=== PATIENT | female | born 1990 | race Caucasian/White ===

== ENCOUNTER 2022-04-03 01:57 | Emergency (ER) | payer MEDICAID, SELFPAY ==
[2022-04-03 02:03] VITALS: BP 107/83; PULSE 125; RESP 16; TEMP 37.1; O2SAT 99; BMI 22.4
--- NOTE | 2022-04-03 02:03 | ED_ITS ---
HPI - General Adult General Time Seen by Provider: 02:04 Date Seen: 04/03/22 Chief complaint: Headache/Migraine Stated complaint: Migraine, back pain,chills Time Seen by Provider: 04/03/22 02:00 Source: patient and other (friend) Mode of arrival: ambulatory Limitations: no limitations History of Present Illness HPI narrative: 37-year-old who presents today with numerous complaints. The primary complaint today is headache. The patient has a history of chronic recurrent headaches and has had emergency department visits in the past. Normally takes Tylenol, melox icam, and Imitrex for this but has not received relief. 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 The headache is generalized, goes into the neck and upper back. No photophobia or phonophobia. Over the past month, progressive difficulty swallowing which is an old problem but seems to be getting worse, also reports chills, weight loss, paresthesias. There is an appointment in the spine clinic in a couple of weeks for concerns but came in today because of ongoing headache. Hematuria for the past year, denies urinary symptoms today. Review of most recent neurology visit on January 24 demonstrates tachycardia with a rate of about 120, cervicalgia, back pain with sciatica, paresthesias, migraines, and gait disturbance. Recent MRI of the cervical spine did not demonstrate any abnormalities other than some degenerative changes, MRI of the brain from December was normal. Also note the patient was seen by Neurosurgery on February 18, although I do not have access to MRIs, MRI of the thoracic spine and lumbar spine reported to be negative, although there is some evidence for craniocervical instability reported. Related Data Home Medications Medication Instructions Recorded Confirmed Tylenol 04/03/22 Zofran 04/03/22 meloxicam 04/03/22 sumatriptan 04/03/22 Allergies Allergy/AdvReac Type Severity Reaction Status Date / Time Sulfa (Sulfonamide Allergy itching Verified 04/03/22 03:17 Antibiotics) Review of Systems Status of ROS: Reports: 10 or more systems reviewed and unremarkable except as noted in History and below [facility] Medical History (Updated 04/03/22 @ 03:10 by Bill Bryant RN) Migraine Surgical History (Updated 04/03/22 @ 03:11 by Bill Bryant RN) History of hysterectomy History of thyroidectomy Hx of tonsillectomy Social History Smoking Status: Former smoker Do you use any of these nicotine containing products: Vaping Products Second hand tobacco smoke exposure: No How often do you have a drink containing alcohol: never AUDIT-C Alcohol total score: 0 Non-prescribed substance use: marijuana (any form) service: No Exam Narrative: Exam Narrative: General: Well-developed and well-nourished, no acute distress Head: Atraumatic and normocephalic Eyes: Pupils are equal reactive, extraocular motions intact, conjunctiva clear ENT: External nose and ears are normal, posterior pharynx without erythema or exudate Neck: No midline cervical tenderness, full spontaneous range of motion the ne ck, trachea midline, no adenopathy Heart: Regular rate and rhythm no murmurs or thrills Lungs: Clear to auscultation bilaterally without wheezes or crackles Abdomen: Soft, nontender, nondistended with active bowel sounds Musculoskeletal: No tenderness, deformity, or edema Neurologic: Awake, alert, and oriented x3, no gross focal neurologic deficits, cranial nerves intact as tested Psych: Mood and affect are appropriate Skin: No rashes Const: Vital Signs, click to edit/add: Vital Signs - 24 hr 04/03/22 02:03 04/03/22 03:13 Temperature 98.7 F Pulse Rate [Left P ulse Oximeter] 125 H 110 H Respiratory Rate 16 16 Blood Pressure [Ri ght Upper Arm] 107/83 107/83 Pulse Oximetry 99 96 Oxygen Delivery Me thod Room Air Room Air Course Course Hospital Course: Patient seen and examined, prior records reviewed. Differential diagnosis includes but not limited to chronic pain, vertebral dissection, migraine, connective tissue disorder, electrolyte disturbance. Patient with numerous complaints today, review of chart shows that most of these are fairly chronic including chronic pain, paresthesias, balance problems, coordination difficulty. On exam here, no gross focal neurologic deficits noted. Tachycardia on initial arrival which appears is not unusual for the patient based on prior records reviewed. Concern for increased swallowing difficulty in setting of connective tissue disorder, possible vetebral artery dissection. Labs and CT scan ordered along with Toradol and Ativan. If labs and CT are reassuring, patient be discharged with continued outpatient follow-up Reevaluation(s) Reevaluation #1: Labs are reassuring, CT and CTA of IV. Repeat exam negative, patient can be discharged with continued outpatient follow-up. Time: 04:09 Reevaluation #2: Radiology interpretation of CT scan negative. Patient is stable for discharge. Today patient feels better, discussed Decadron to suppress headache. Time: 04:17 Vital Signs Vital signs: Initial Vital Signs Temperature 98.7 F 04/03/22 02:03 Temperature Source Oral 04/03/22 02:03 Pulse Rate 125 H 04/03/22 02:03 Respiratory Rate 16 04/03/22 02:03 Blood Pressure 107/83 04/03/22 02:03 Blood Pressure Mean 91 04/03/22 02:03 Blood Pressure Position Supine 04/03/22 02:03 Pulse Oximetry 99 04/03/22 02:03 Oxygen Delivery Method 04/03/22 02:03 Vital Signs Temperature 98.7 F 04/03/22 02:03 Pulse Rate 125 H 04/03/22 02:03 Respiratory Rate 16 04/03/22 02:03 Blood Pressure 107/83 04/03/22 02:03 Pulse Oximetry 99 04/03/22 02:03 Oxygen Delivery Method 04/03/22 02:03 Temperature 98.7 F 04/03/22 02:03 Pulse Rate 110 H 04/03/22 03:13 Respiratory Rate 16 04/03/22 03:13 Blood Pressure 107/83 04/03/22 03:13 Pulse Oximetry 96 04/03/22 03:13 Oxygen Delivery Method 04/03/22 03:13 Medical Decision Making Medical Records Medical records reviewed: Yes I reviewed the patient's medical records Lab Data Lab results reviewed: Yes I reviewed the patient's lab results Labs: Lab Results 04/03/22 04/03/22 Range/Units 02:00 02:00 WBC 7.84 (4.50-11.00) K/uL RBC 4.47 (4.00-5.20) m/uL Hgb 14.1 (12.0-16.0) gm/dL Hct 40.4 (33.0-51.0) % MCV 90 (80-100) fL MCH 32 (26-34) pg MCHC 35 (32-36) gm/dL RDW Coeff of Louie 12.3 (11.5-15.5) % Plt Count 335 (140-440) K/uL Neut % (Auto) 45.1 (42.0-72.0) % Lymph % (Auto) 43.4 (20-44) % [place] % (Auto) 6.5 (0.0-11.0) % Eos % (Auto) 4.6 (0.0-7.0) % Baso % (Auto) 0.4 (0.0-3.0) % Neut # (Auto) 3.54 (1.7-7.0) K/uL Lymph # (Auto) 3.40 H (0.90-2.90) K/uL [place] # (Auto) 0.50 (0.00-0.90) K/UL Eos # (Auto) 0.36 (0.00-0.50) K/uL Baso # (Auto) 0.03 (0.00-0.30) K/uL Abs Immat Gran (auto) 0.00 (0.00-0.30) K/uL Sodium 141 (135-149) mmol/L Potassium 3.2 L (3.6-5.1) mmol/L Chloride 105 (96-114) mmol/L Carbon Dioxide 25 (20-32) mmol/L BUN 18 (5-24) mg/dL Creatinine 0.5 (0.5-1.5) mg/dL Estimated Creat Clear 154.02 Estimated GFR 129 ml/min Glucose 115 (60-115) mg/dL Calcium 9.3 (8.4-10.6) mg/dL Imaging Data CTA head and neck: Attestation: I have reviewed the pertinent imaging results. My impression: no acute findings Radiologist's impression: no acute findings Discharge Plan Discharge Clinical Impression: Tali-Danlos syndrome, Headache, Chronic pain syndrome Patient Disposition: Home, Self-Care Condition: Stable Instructions: Chronic Pain (ED), Acute Headache (DC) Additional Instructions: Continue your current medications and follow-up with your primary care doctor. Activity Level: No Restrictions Discharge Diet: Regular Prescriptions: No Action meloxicam Zofran Tylenol sumatriptan Stand Alone Forms: [employer] Info Instructions
--- NOTE | 2022-04-03 02:25 | CRLHL7_ITS ---
For Patients: As a result of the Century Cures Act, medical imaging exams and procedure reports are released immediately into your electronic medical record. You may view this report before your referring provider. If you have questions, please contact your health care provider. Indication: Headache. Neck pain. Swallowing difficulty. Technique: Performed without IV contrast. Comparison: None available. Findings: No mass lesion or ventricular obstruction. No hemorrhage is identified. No brain edema or ischemia is localized on this exam. No encephalomalacia. The calvarium and skull base are unremarkable, with normal aeration of the visualized petrous temporal bones and paranasal sinuses on both sides. Impression: Negative CT head. Please note that all CT scans at this facility use dose modulation, iterative reconstruction, and/or weight-based dosing when appropriate to reduce radiation dose to as low as reasonably achievable. Dictated by Caden Morales MD @ 04/03/2022 9:36:21 AM (Electronically Signed)
--- NOTE | 2022-04-03 02:33 | CT_ITS ---
Final Report Patient: VIDA GR Facility:?[facility] Patient ID:?[id number] Site Patient ID:?[id number]. Site :?[id number] Study:?CT Neck Angio Angio -04/03/2022 3:19:41 AM Ordering Physician:Shahbaz Tamez Final Report: DATE: 04/03/2022 CLINICAL HISTORY: Patient with neck pain and headache. TECHNIQUE: Standard helical CT image acquisition of the neck up to the skull base after bolus intravenous contrast enhancement. Multiplanar reconstructed images performed on a separate workstation. COMPARISON: CT same day. FINDINGS: The origins of the great vessels from the aortic arch are patent. The origin of the right vertebral artery is patent. The origin of the left vertebral artery is patent. The common carotid arteries are patent. There is no stenosis at the origin of the right internal carotid artery. There is no stenosis at the origin of the left internal carotid artery. The rest of the cervical segments of the internal carotid arteries are patent up to the skull base. The vertebral arteries are codominant. The cervical segments of the vertebral arteries are patent up to the skull base. The visualized lung apices are unremarkable. The thyroid gland is unremarkable. The soft tissues of the neck are unremarkable. There are degenerative changes in the cervical spine. IMPRESSION: Normal CT angiogram of the neck. Please note that all CT scans at this facility use dose modulation, iterative reconstruction, and/or weight-based dosing when appropriate to reduce radiation dose to as low as reasonably achievable. Dictated by Suresh Hardy MD @ 04/03/2022 11:49:51 AM (Electronic Signature)
--- NOTE | 2022-04-03 02:33 | CT_ITS ---
Final Report Patient: VIDA GR Facility:?[facility] Patient ID:?[id number] Site Patient ID:?[id number]. Site :?1990 Study:?CT Head Angio -04/03/2022 3:18:26 AM Ordering Physician:Shahbaz Tamez Final Report: DATE: 04/03/2022 CLINICAL HISTORY: Patient with headache. TECHNIQUE: Standard helical CT image acquisition through the intracranial circulation following intravenous administration of contrast material with bolus tracking. Multiplanar reconstructed images were performed and interpreted. COMPARISON: CT same day. FINDINGS: There is no cerebral aneurysm or large vessel occlusion. The right internal carotid artery is normal. The right middle cerebral artery and its branches are normal. The right anterior cerebral artery and its branches are normal. The left internal carotid artery is normal. The left middle cerebral artery and its branches are normal. The left anterior cerebral artery and its branches are normal. The anterior communicating artery is well visualized and appears normal. The right vertebral artery and PICA are normal. The left vertebral artery and PICA are normal. The vertebral arteries are codominant. The basilar artery is patent and appears normal. The right posterior cerebral artery is normal. The left posterior cerebral artery is normal. The visualized venous structures are patent. IMPRESSION: Normal CT angiogram of the head without intracranial aneurysm or other neurovascular abnormality. Please note that all CT scans at this facility use dose modulation, iterative reconstruction, and/or weight-based dosing when appropriate to reduce radiation dose to as low as reasonably achievable. Dictated by Suresh Hardy MD @ 04/03/2022 11:51:28 AM (Electronic Signature)
[2022-04-03] MEDS: LORazepam 2 MG/ML inj 0.5 MG IVP (02:43)
[2022-04-03] MEDS: KETOROLAC 15 MG/ML inj IVP (02:44)
[2022-04-03 02:49] LABS: Basophils Absolute Auto 0.03 K/uL (0.00-0.30); Basophils Percent Auto 0.4 % (0.0-3.0); Eosinophils Absolute Auto 0.36 K/uL (0.00-0.50); Eosinophils Percent Auto 4.6 % (0.0-7.0); Hematocrit 40.4 % (33.0-51.0); Hemoglobin* 14.1 gm/dL (12.0-16.0); Lymphocytes Percent Auto 43.4 % (20-44); Mean Corpuscular HGB Conc 35 gm/dL (32-36); Mean Corpuscular Hemoglobin 32 pg (26-34); Mean Corpuscular Volume 90 fL (80-100); Monocytes Percent Auto 6.5 % (0.0-11.0); Neutrophils Absolute Auto 3.54 K/uL (1.7-7.0); Neutrophils Percent Auto 45.1 % (42.0-72.0); Platelet Count* 335 K/uL (140-440); RDW Coefficient of Variation % 12.3 % (11.5-15.5); Red Blood Count 4.47 m/uL (4.00-5.20); White Blood Count* 7.84 K/uL (4.50-11.00)
[2022-04-03 02:51] LABS: Slide Review Reflex No
[2022-04-03 03:01] LABS: Chloride* 105 mmol/L (96-114); Potassium* 3.2 mmol/L (3.6-5.1); Sodium* 141 mmol/L (135-149)
[2022-04-03 03:03] LABS: Creatinine* 0.5 mg/dL (0.5-1.5); Est. Creatinine Clearance* 154.02; Estimated Glomerular Filt Rate 129 ml/min
[2022-04-03 03:04] LABS: Blood Urea Nitrogen* 18 mg/dL (5-24); Calcium* 9.3 mg/dL (8.4-10.6); Carbon Dioxide* 25 mmol/L (20-32); Glucose* 115 mg/dL (60-115)
[2022-04-03 03:13] VITALS: BP 107/83; PULSE 110; RESP 16; O2SAT 96
--- NOTE | 2022-04-03 03:43 | ED.NURSE ---
pt is sleeping
[2022-04-03] MEDS: dexAMETHasone 4 MG/ML VIAL IV (04:23)
[2022-04-03 04:25] VITALS: BP 93/66; PULSE 90; RESP 16; O2SAT 96
== END 2022-04-03 05:08 | disposition home or self-care (01) ==
PROVIDERS: Emergency Provider Family Medicine
DX: Q79.60 Ehlers-Danlos syndrome, unspecified (principal); R51.9 Headache, unspecified
CPT/HCPCS: 36415; 70450; 70496; 70498; 80048; 85025; 96365; 96375; 99284; 99285; J1100; J1885; J2060; Q9967